=== PATIENT | female | born 1985 | race American Indian/Alaskan Native ===

== ENCOUNTER → 2018-11-06 16:15 | Outpatient (CLI) | payer OTHER, SELFPAY | PROVIDERS: PCP Family Medicine; Visit Provider Physician Assistant | DX: J02.9 Acute pharyngitis, unspecified (principal) | CPT/HCPCS: 87070; 87077; 87147 ==

== ENCOUNTER 2023-01-08 18:36 | Emergency (ER) | payer OTHER, SELFPAY ==
[2023-01-08 18:40] VITALS: BP 186/95; PULSE 82; RESP 17; TEMP 36.7; O2SAT 98; BMI 25.4
--- NOTE | 2023-01-08 19:25 | ED.BACK ---
HPI - Back Pain/Injury General Chief Complaint: Back Pain/Injury Stated Complaint: upper back pain/lt arm hurts/hand cold Time Seen by Provider: 01/08/23 19:08 Source: patient Mode of arrival: Ambulatory Limitations: no limitations History of Present Illness HPI Narrative: This is a 37-year-old on oral contraceptives who states she was lying on her couch this evening at about 5:30 p.m. she had been lying down for about an hour went to get up and had pain radiating from her left neck thoracic area down her left arm. Patient states it is worse with movement. She denies any radiation her anterior chest. She states it does go down her arm. Her arm feels sort of cold or different. She denies any weakness or difficulty with [facility] management specialist or dropping objects. She denies any weakness. No shortness of breath, no lightheadedness or passing out. No nausea or vomiting, no diaphoresis. No other GI or urinary symptoms other than chronic frequency. Patient denies symptoms in the past. Patient states she has not taken anything for pain at home. It has not get any better but isn't rapidly progressing. Patient states she takes an oral contraceptive. She does not have any other daily prescriptions. She is had a prior cholecystectomy. No known drug allergies. She vapes tobacco, no alcohol or illicit. Her primary care is through the [facility]. She is accompanied by her . Related Data Previous Rx's Medication Instructions Recorded azithromycin 250 mg tablet See Rx Instructions PO .COMPLEX #6 11/06/18 tabs amoxicillin 500 mg tablet 500 mg PO BID #20 tabs 11/11/18 norethindrone acetate 1.5 See Rx Instructions .Route 10/26/20 mg-ethinyl estradiol 30 mcg tablet .COMPLEX #105 tabs (Aurovela) hydrocodone 5 mg-acetaminophen 325 1 tab PO Q6H PRN pain #10 tabs 01/08/23 mg tablet prednisone 10 mg tablets in a dose See Rx Instructions .Route 01/08/23 pack .COMPLEX #15 ea Allergies Allergy/AdvReac Type Severity Reaction Status Date / Time No Known Drug Allergies Allergy Verified 11/06/18 12:45 Review of Systems Review of Systems ROS Unobtainable: All systems reviewed & are unremarkable except as noted in HPI and below Patient History Social History Smoking Status: Current every day smoker Smoking Status: Current every day smoker tobacco type: vaping alcohol intake frequency: 0-2 drinks per day Substance Use Type: does not use Exam Narrative Exam Narrative: GEN: well nourished, well appearing female, alert and oriented x 3, patient appears to be in mild distress. HEENT: Atraumatic, pupils are equal round reactive to light, extraocular movements are intact, nares are clear, TMs are clear with no fluid, there is no conjunctival pallor. Throat is clear without any exudates, erythema, tonsillar enlargement or uvular deviation, no cervical vertebral tenderness. Positive Spurling's test particularly with rotation to the right and hyperextension. HEART: Regular rate and rhythm without murmur, clicks, rubs. Pulses are equal in upper extremities LUNGS:Lungs clear to auscultation, no wheezes, rales, crackles, chest moves symmetrically ABD:bowel sounds normal, soft, non-tender, no guarding, rebound, rigidity, no masses noted, no hepatosplenomegaly :No CVA tendernes BACK: No cervical, thoracic or lumbar vertebral point tenderness. Patient has normal range of motion, but patient does appear uncomfortable with movement. Muscle strength is 5/5 in upper and lower extremities, DTRs are 2/4 upper extremities. Sensation intact bilateral upper extremities. MSCL: Non-tender, no muscle atrophy, muscles strength 5/5 upper and lower extremities, full range of motion, normal gait NEURO:CN 2-12 intact, sensation normal. SKIN: No rash, erythema or other skin changes. Initial Vital Signs Initial Vital Signs: Vital Signs Temperature 98.0 F 01/08/23 18:40 Pulse Rate 82 01/08/23 18:40 Respiratory Rate 17 01/08/23 18:40 Blood Pressure 186/95 H 01/08/23 18:40 Pulse Oximetry 98 01/08/23 18:40 Oxygen Delivery Method Room Air 01/08/23 18:40 Course Orders Ordered: Discontinued Medications Hydrocodone Bitart/Acetaminophen (Hydrocodone/Acet 5/325 Prepack) 1 bottle MISC SEEINSTR ONE Stop: 01/08/23 19:26 Last Admin: 01/08/23 19:37 Dose: 1 bottle Documented By: Prednisone (Prednisone 20 Mg Tablet) 60 mg PO NOW ONE Stop: 01/08/23 19:26 Last Admin: 01/08/23 19:36 Dose: 60 mg Documented By: ST Vital Signs Vital signs: Vital Signs - 8 hr 01/08/23 18:40 Temperature 98.0 F Pulse Rate 82 Respiratory Rate 17 Blood Pressure 186/95 H Pulse Oximetry 98 Oxygen Delivery Method Room Air MDM - Back Pain/Injury ECG Data Attestation: I personally reviewed and interpreted this ECG as follows: Prior ECG tracings: not available for review Interpretation: Sinus rhythm rate of 73 P 146 QRS is 70 QTC of 405. No acute ST elevation or depression noted. No priors for comparison. [facility] Narrative Medical decision making narrative: This is a 37-year-old female who was lying on the couch for about an hour got up and pain radiating from her upper thoracic region down her arm with some hold sensation but no tingling, no weakness. Patient is neurovascularly intact good pulses bilaterally normal range of motion but does appear quite uncomfortable with movement. She is a positive Spurling's test particularly when she rotates to the right and extends backward with pain down her left arm. I suspect she has a radiculopathy. Patient's EKG shows normal sinus rhythm with no acute changes. Patient was given dose of oral prednisone and pain medication here in the department with plan for short script for prednisone, pain management and follow up with primary care if persistent symptoms. We discussed return precautions and red flag symptoms to emergently return and need for follow up. Discharge Plan Departure Patient Disposition: Home Clinical Impression: Cervical radiculopathy Instructions: DI for Cervical Radiculopathy Activity Restrictions/Additional Instructions: Follow-up with your physician if your symptoms have not significantly improved this week. Please call to set up an appointment. Take steroids once daily until gone. I would recommend taking this medicine with food. You may take ibuprofen up to 600 mg every 6 hours as needed. You may take [place] 1-2 tablets every 6 hours as needed for pain. This medication can make you sleepy do not drive, perform hazardous activities or make any major decisions while taking it. This medication will make you constipated please take a stool softener once to twice daily until stools are soft and regular. Prescription sent to [facility] in [place] Please return for rapidly worsening symptoms, inability to control your pain, new weakness, loss of sensation, inability to [place] management specialist or lift or move your arm, new chest pain, shortness of breath, passing out or other new or concerning changes Prescriptions: New hydrocodone-acetaminophen 5-325 mg tablet 1 tab PO Q6H PRN (Reason: pain) Qty: 10 0RF prednisone 10 mg tablets,dose pack See Rx Instructions .ROUTE .COMPLEX Qty: 15 0RF Rx Instructions: Take 5 tablets p.o. x1 day, then 4 tablets p.o. x1 day, then 3 tablets p.o. x1 day, then 2 tablets p.o. x1 day, then 1 tablet p.o. x1 day No Action azithromycin 250 mg tablet See Rx Instructions PO .COMPLEX Qty: 6 0RF Rx Instructions: take 500 mg today (day 1), then 250 mg for 4 days (days 2-5) PO amoxicillin 500 mg tablet 500 mg PO BID Qty: 20 0RF norethindrone ac-eth estradiol [Aurovela 1.5/30 (21)] 1.5-30 mg-mcg tablet See Rx Instructions .ROUTE .COMPLEX Qty: 105 1RF Dose Instruction: TAKE 1 TABLET BY MOUTH EVERY DAY Rx Instructions: TAKE 1 TABLET BY MOUTH EVERY DAY Referrals: Yesica Fernandez MD [Primary Care Provider] - Stand Alone Forms: Patient Portal/API
[2023-01-08] MEDS: predniSONE 20 MG TABLET 60 MG PO (19:36)
[2023-01-08] MEDS: HYDROCODONE/ACET 5/325 PREPACK 1 BOTTLE MISC (19:37)
== END 2023-01-08 19:50 | disposition home or self-care (01) ==
PROVIDERS: Emergency Provider Emergency Medicine; PCP Family Medicine
DX: M54.12 Radiculopathy, cervical region (principal); R03.0 Elevated blood-pressure reading, without diagnosis of hypertension
CPT/HCPCS: 93005; 93010; 99283